=== PATIENT | female | born 1990 | race Caucasian/White ===

== ENCOUNTER 2024-01-17 05:41 | Observation (INO) | payer OTHER ==
[2024-01-15 10:49] VITALS: BMI 33.5
[2024-01-15 11:23] LABS: Hemoglobin 13.9 g/dL (12.0-15.5); Mean Corpuscular HGB CONC 33.1 g/dL (32.0-36.0); Mean Corpuscular Hemoglobin 28.6 pg (27.0-33.0); Mean Corpuscular Volume 86.4 fL (81.6-98.3); Mean Platelet Volume 8.9 fL (7.4-10.4); Platelet Count 357 10x3/uL (150-450); Red Blood Cell (RBC) Count 4.86 10x6/uL (3.90-5.03); White Blood Cell (WBC) Count 10.5 10x3/uL (3.5-10.5)
[2024-01-15 11:33] LABS: BHCG - Serum Negative (NEGATIVE); Pregs Control Background? CLEAR/WHITE (CLR/WHITE); Pregs Control Bar Appear? YES (CONTROL BAR)
[2024-01-17] MEDS ORDERED: CeleCOXIB 100 MG CAP ONE (06:15)
[2024-01-17] MEDS ORDERED: Gabapentin 300 MG CAP ONE (06:15)
[2024-01-17] MEDS ORDERED: Famotidine/PF 20 mg/2ml Vial ONE (06:16)
[2024-01-17] MEDS ORDERED: Lidocaine 2% PF 5 ML VIAL ONE (06:32)
[2024-01-17] MEDS ORDERED: SUGAMMADEX SODIUM 200 MG/2 ML VIAL ONE (06:35)
[2024-01-17] MEDS ORDERED: Rocuronium Bromide 10 MG/ML (10ML VIAL) ONE (06:35)
[2024-01-17] MEDS ORDERED: Ondansetron PF 4 MG/2 ML Vial ONE (06:35)
[2024-01-17] MEDS ORDERED: PROPOFOL 20 ML ONE ×2 (06:35→06:37)
[2024-01-17] MEDS ORDERED: Dexamethasone 4 mg/ml Vial ONE (06:35)
[2024-01-17] MEDS ORDERED: Dexmedetomidine 200 MCG/2 ML VIAL ONE (06:36)
[2024-01-17] MEDS ORDERED: fentaNYL 50 mcg/mL 1 mL Vial ONE ×4 (06:37→13:49)
[2024-01-17] MEDS ORDERED: Methylene Blue 50 MG/10 ML AMPUL ONE (06:44)
[2024-01-17] MEDS ORDERED: Bupivacaine HCl 0.5%/Epinephrine 1:200,000/PF 30 ml Vial ONE (06:44)
[2024-01-17] MEDS ORDERED: Lidocaine 1% w/Epinephrine 1:200K 30 ML VIAL ONE (06:44)
[2024-01-17] MEDS ORDERED: Midazolam HCl 2 mg/2 ml Vial ONE (07:16)
[2024-01-17] MEDS ORDERED: CEFAZOLIN 2 GM VIAL ONE (07:25)
[2024-01-17] MEDS ORDERED: PHENYLEPHRINE-NS 100 MCG/ML 10 ML SYRINGE ONE (07:53)
[2024-01-17] MEDS ORDERED: diphenhydrAMINE 50 MG/ML VIAL ONE (07:58)
[2024-01-17] MEDS ORDERED: Acetaminophen 325 MG TAB PO PRN (10:18)
[2024-01-17] MEDS ORDERED: Ondansetron PF 4 MG/2 ML Vial IVP PRN (10:18)
[2024-01-17] MEDS ORDERED: Promethazine HCl 25 MG/ML VIAL IM PRN (10:18)
[2024-01-17] MEDS ORDERED: Bisacodyl 10 MG SUPP PR PRN (10:18)
[2024-01-17] MEDS ORDERED: Zolpidem Tartrate 5 MG TAB PO PRN (10:18)
[2024-01-17] MEDS ORDERED: diphenhydrAMINE 25 MG CAP PO PRN (10:18)
[2024-01-17] MEDS ORDERED: fentaNYL 50 mcg/mL 1 mL Vial SLOW IVP PRN (10:25)
[2024-01-17] MEDS ORDERED: Sevoflurane 250 ML INH ANEST BOTTLE ONE (10:39)
[2024-01-17] MEDS ORDERED: Meperidine HCl/PF 25 MG (1 mL) VIAL ONE (10:54)
[2024-01-17] MEDS ORDERED: Ketorolac Tromethamine 30 MG (1 mL) VIAL ONE (13:58)
[2024-01-17] MEDS: Ketorolac Tromethamine 30 MG (1 mL) VIAL IVP SCH ×2 (14:09→19:57)
[2024-01-17] MEDS ORDERED: HYDROcodone/Acetaminophen 5/325 mg Tablet ONE (15:00)
[2024-01-17] MEDS: HYDROcodone/Acetaminophen 5/325 mg Tablet PO PRN ×2 (15:10→18:33)
[2024-01-17] MEDS: Lactated Ringer's 1,000 ML IV SCH (15:28)
[2024-01-17] MEDS: Aripiprazole 10 MG TAB PO SCH (19:58)
[2024-01-18] MEDS: Simethicone Chewable 80 MG TAB PO PRN (02:39)
[2024-01-18 04:24] LABS: Hemoglobin 11.6 g/dL (12.0-15.5); Mean Corpuscular HGB CONC 33.1 g/dL (32.0-36.0); Mean Corpuscular Hemoglobin 28.9 pg (27.0-33.0); Mean Corpuscular Volume 87.3 fL (81.6-98.3); Mean Platelet Volume 9.2 fL (7.4-10.4); Platelet Count 327 10x3/uL (150-450); RBC Distribution Width 13.2 % (11.5-14.5); Red Blood Cell (RBC) Count 4.01 10x6/uL (3.90-5.03); White Blood Cell (WBC) Count 16.6 10x3/uL (3.5-10.5)
[2024-01-18 08:10] VITALS: BP 119/77; TEMP 98.1
[2024-01-18] MEDS ORDERED: Escitalopram Oxalate 20 mg Tablet PO SCH (09:00)
[2024-01-22] MEDS ORDERED: Ibuprofen 800 MG TAB PO SCH (22:00)
[2024-01-23] MEDS ORDERED: Ibuprofen 800 MG TAB PO SCH (06:00)
== END 2024-01-18 11:40 | disposition home or self-care (01) ==
LOC: CSHSDC 05:41 → CSHPP 10:22
PROVIDERS: ADMIT Student in an Organized Health Care Education/Training Program; ATTEND Student in an Organized Health Care Education/Training Program
PROC: 0UT94ZZ Resection of Uterus, Percutaneous Endoscopic Approach (ICD-10-PCS; principal; 2024-01-17)
PROC: 0UT74ZZ Resection of Bilateral Fallopian Tubes, Percutaneous Endoscopic Approach (ICD-10-PCS; 2024-01-17)
PROC: 0US Female Reproductive System, Reposition (ICD-10-PCS; 2024-01-17)
PROC: 0JQC0ZZ Repair Pelvic Region Subcutaneous Tissue and Fascia, Open Approach (ICD-10-PCS; 2024-01-17)
PROC: 0TSD0ZZ Reposition Urethra, Open Approach (ICD-10-PCS; 2024-01-17)
DX: N81.2 Incomplete uterovaginal prolapse (principal); N87.9 Dysplasia of cervix uteri, unspecified; N39.3 Stress incontinence (female) (male); N80.9 Endometriosis, unspecified; F32.A Depression, unspecified; F41.0 Panic disorder [episodic paroxysmal anxiety]; Z87.891 Personal history of nicotine dependence; Z79.1 Long term (current) use of non-steroidal anti-inflammatories (NSAID); Z79.899 Other long term (current) drug therapy
CPT/HCPCS: 36415; 84703; 85027; 86850; 86900; 86901; 88307; C1771; J1100; J1200; J1885; J2175; J2250; J2405; J2704; J3010; J3490; J7120; S2900